=== PATIENT | female | born 1960 | race Caucasian/White ===

== ENCOUNTER 2024-09-10 14:35 | Emergency (ER) | payer MEDICARE, BC ==
[~2024-09-10] VITALS: Ht 160 cm; Wt 81.5 kg
[~2024-09-10 14:35] MED LIST: BACL10TA PO; CYMBALTA; GABA-532 PO; HYDR-4353 PO; SYNTHROID; TRAZ-251 PO
[2024-09-10] MEDS: diazepam 5mg tablet PO ONE (15:44)
[2024-09-10] MEDS: ketorolac trometh 15mg/ml vial 15 MG/ML ML IM ONE (15:46)
[2024-09-10] MEDS ORDERED: PRED20TA PO (16:32)
[2024-09-10] MEDS ORDERED: LORA-269 PO (16:33)
[2024-09-10] MEDS: predniSONE 20 mg tablet PO ONE (16:40)
[2024-09-10 16:48] VITALS: BP 116/66; PULSE 64; RESP 16; TEMP 97.8; O2SAT 97
== END 2024-09-10 16:53 | disposition home or self-care (01) ==
LOC: ER 14:35
DX: M54.50 Low back pain, unspecified (principal); E03.9 Hypothyroidism, unspecified; G89.29 Other chronic pain; Z88.0 Allergy status to penicillin; Z88.1 Allergy status to other antibiotic agents; Z79.1 Long term (current) use of non-steroidal anti-inflammatories (NSAID); Z79.899 Other long term (current) drug therapy
CPT/HCPCS: 96372; 99283; J1885; J7512